=== PATIENT | female | born 1990 | race Caucasian/White ===

== ENCOUNTER 2016-07-18 19:54 | Emergency (ER) | payer OTHER ==
[~2016-07-18] VITALS: Ht 160 cm; Wt 59.5 kg
[~2016-07-18 19:54] MED LIST: IBUPROFEN800 MG PO; NAPROSYN500 MG PO; NORCO 5/3251 TABLET PO; PRENATAL TABLE1 EAC3 PO; ULTRACET1 TABLET PO; WOMEN MULTIVIT1 EACH PO; ZOFRAN ODT4 MG PO; ZOFRAN4 MG PO
[2016-07-18 20:33] LABS: ADD MIUA? YES; BILIRUBIN NEGATIVE; BLOOD NEGATIVE; COLOR YELLOW ((YELLOW)); GLUCOSE (STRIP) NEGATIVE; KETONES NEGATIVE; LEUKOCYTES SMALL; NITRITE NEGATIVE; PROTEIN (STRIP) 30; SPECIFIC GRAVITY 1.024 (1.000-1.030); UROBILINOGEN 0.2 MG/DL (0.2-1.0)
[2016-07-18 20:47] LABS: BACTERIA NONE SEEN /HPF; EPITHELIAL CELLS 2+ /HPF; MUCUS 1+ /LPF; RED BLOOD CELLS 0-5 /HPF (0-5); UCUL ADDED? NO; WHITE BLOOD CELLS 0-5 /HPF (0-5)
[2016-07-18 20:50] LABS: HEMATOCRIT 38.9 % (36.0-46.0); MCHC 33.4 G/DL (30.0-36.0); MCV 95.8 FL (83-99); MEAN PLAT.VOLUME 9.1 uM^3 (9.5-12.4); PLATELET COUNT 361 K/uL (156-360); RBC DIS.WIDTH-CV 12.1 % (11.8-14.6); RBC DIS.WIDTH-SD 43.2 % (39-53); RED BLOOD COUNT 4.06 M/uL (3.80-5.20); WHITE BLOOD COUNT 7.4 K/uL (4.1-10.2)
[2016-07-18 21:00] LABS: CHLORIDE 107 mEq/L (99-109); POTASSIUM 3.9 mEq/L (3.7-5.4); SODIUM 140 mEq/L (136-147)
[2016-07-18 21:02] LABS: GLUCOSE 76 mg/dL (70-99)
[2016-07-18 21:03] LABS: ANION GAP 10 MEQ/L (2-14)
[2016-07-18 21:04] LABS: TOTAL BILIRUBIN 0.3 mg/dL (0.0-1.0)
[2016-07-18 21:06] LABS: ALKALINE PHOSPHATASE 56 IU/L (3-129); GFR ESTIMATE (CALCULATED) > 59 mL/min/
[2016-07-18 21:07] LABS: UREA NITROGEN (BUN) 12 mg/dL (9-23)
[2016-07-18 21:15] LABS: QUANTITATIVE HCG < 4.0 MIU/ML
[2016-07-18] MEDS ORDERED: ZOFRAN ODT4 MG PO (23:08)
[2016-07-18] MEDS ORDERED: NORCO 5/3251 TABLET PO (23:08)
[2016-07-18 23:32] VITALS: BP 139/87
== END 2016-07-18 23:33 | disposition home or self-care (01) ==
LOC: EME 19:54 → EXP 20:44
PROVIDERS: Physician Assistant
DX: N83.202 Unspecified ovarian cyst, left side (principal); R10.9 Unspecified abdominal pain; R10.32 Left lower quadrant pain; Z87.442 Personal history of urinary calculi; Z88.1 Allergy status to other antibiotic agents; Z88.8 Allergy status to other drugs, medicaments and biological substances; Z91.018 Allergy to other foods
CPT/HCPCS: 74176; 76856; 80053; 81003; 84702; 85027; 99281; 99285; J1885; J2270; J2405; J7030

== ENCOUNTER 2016-12-22 17:54 | Emergency (ER) | payer OTHER ==
[~2016-12-22] VITALS: Ht 160 cm; Wt 63.6 kg
[2016-12-22 19:06] LABS: ADD MIUA? YES; BILIRUBIN NEGATIVE; BLOOD SMALL; COLOR YELLOW ((YELLOW)); GLUCOSE (STRIP) NEGATIVE; KETONES NEGATIVE; LEUKOCYTES TRACE; NITRITE NEGATIVE; PROTEIN (STRIP) NEGATIVE; SPECIFIC GRAVITY 1.027 (1.000-1.030); UROBILINOGEN 0.2 MG/DL (0.2-1.0)
[2016-12-22 19:22] LABS: BACTERIA NONE SEEN /HPF; EPITHELIAL CELLS 1+ /HPF; MUCUS TRACE /LPF; RED BLOOD CELLS 0-5 /HPF (0-5); UCUL ADDED? NO; WHITE BLOOD CELLS 0-5 /HPF (0-5)
[2016-12-22 19:23] LABS: HEMATOCRIT 37.5 % (36.0-46.0); MCH 31.8 PG (29.0-34.0); MCHC 34.1 G/DL (30.0-36.0); MCV 93.3 FL (83-99); MEAN PLAT.VOLUME 9.1 uM^3 (9.5-12.4); PLATELET COUNT 376 K/uL (156-360); RBC DIS.WIDTH-CV 11.4 % (11.8-14.6); RBC DIS.WIDTH-SD 38.8 % (39-53); RED BLOOD COUNT 4.02 M/uL (3.80-5.20); WHITE BLOOD COUNT 6.2 K/uL (4.1-10.2)
[2016-12-22 19:31] LABS: CHLORIDE 105 mEq/L (99-109); POTASSIUM 3.9 mEq/L (3.7-5.4); SODIUM 139 mEq/L (136-147)
[2016-12-22 19:33] LABS: GLUCOSE 85 mg/dL (70-99)
[2016-12-22 19:34] LABS: ANION GAP 10 MEQ/L (2-14)
[2016-12-22 19:37] LABS: GFR ESTIMATE (CALCULATED) > 59 mL/min/
[2016-12-22 19:38] LABS: UREA NITROGEN (BUN) 17 mg/dL (9-23)
[2016-12-22 19:45] LABS: QUANTITATIVE HCG < 4.0 MIU/ML
[2016-12-22] MEDS ORDERED: PONSTEL250 MG PO (20:26)
[2016-12-22 20:51] VITALS: BP 151/71
== END 2016-12-22 20:52 | disposition home or self-care (01) ==
LOC: EME 17:54
DX: N93.8 Other specified abnormal uterine and vaginal bleeding (principal); N94.6 Dysmenorrhea, unspecified; F41.9 Anxiety disorder, unspecified; Z87.891 Personal history of nicotine dependence; Z88.0 Allergy status to penicillin
CPT/HCPCS: 80048; 81003; 84702; 85027; 99281; 99284

== ENCOUNTER 2017-01-19 09:37 | Emergency (ER) | payer OTHER ==
[~2017-01-19] VITALS: Ht 160 cm; Wt 64.8 kg
[~2017-01-19 09:37] MED LIST changes: +PONSTEL250 MG PO
[2017-01-19] MEDS ORDERED: ZOFRAN ODT4 MG PO (11:37)
[2017-01-19 11:43] VITALS: BP 116/66
== END 2017-01-19 11:51 | disposition home or self-care (01) ==
LOC: EME 09:37
DX: G43.909 Migraine, unspecified, not intractable, without status migrainosus (principal); F41.9 Anxiety disorder, unspecified; Z88.1 Allergy status to other antibiotic agents; Z91.013 Allergy to seafood; Z87.891 Personal history of nicotine dependence
CPT/HCPCS: 99281; 99284; J1885; J2405; J2765; J7030

== ENCOUNTER 2017-04-02 17:00 | Emergency (ER) | payer OTHER ==
[~2017-04-02] VITALS: Ht 160 cm; Wt 64.4 kg
[2017-04-02 17:40] VITALS: BP 146/102
== END 2017-04-02 18:00 | disposition left against medical advice (07) ==
LOC: EME 17:00
DX: M79.89 Other specified soft tissue disorders (principal); Z53.21 Procedure and treatment not carried out due to patient leaving prior to being seen by health care provider

== ENCOUNTER 2017-04-09 17:13 | Emergency (ER) | payer OTHER ==
[~2017-04-09] VITALS: Ht 160 cm; Wt 67.5 kg
[2017-04-09 17:49] LABS: HEMATOCRIT 36.7 % (36.0-46.0); HEMOGLOBIN 12.9 G/DL (11.9-15.5); MCH 33.5 PG (29.0-34.0); MCHC 35.1 G/DL (30.0-36.0); MCV 95.3 FL (83-99); PLATELET COUNT 382 K/uL (156-360); RBC DIS.WIDTH-CV 11.7 % (11.8-14.6); RBC DIS.WIDTH-SD 40.3 % (39-53); RED BLOOD COUNT 3.85 M/uL (3.80-5.20); WHITE BLOOD COUNT 12.7 K/uL (4.1-10.2)
[2017-04-09 18:07] LABS: CHLORIDE 103 mEq/L (99-109); POTASSIUM 3.8 mEq/L (3.7-5.4); SODIUM 137 mEq/L (136-147)
[2017-04-09 18:09] LABS: GLUCOSE 102 mg/dL (70-99)
[2017-04-09 18:13] LABS: CREATININE 0.7 mg/dL (0.6-1.3); GFR ESTIMATE (CALCULATED) > 59 mL/min/; UREA NITROGEN (BUN) 14 mg/dL (9-23)
[2017-04-09 18:21] LABS: QUANTITATIVE HCG < 4.0 MIU/ML
[2017-04-09 20:07] VITALS: BP 139/78
== END 2017-04-09 20:09 | disposition home or self-care (01) ==
LOC: EME 17:13
PROVIDERS: Physician Assistant
DX: R55 Syncope and collapse (principal); F41.9 Anxiety disorder, unspecified; Z88.1 Allergy status to other antibiotic agents
CPT/HCPCS: 80048; 84702; 85027; 93005; 99281; 99285; J2405; J2765; J7030

== ENCOUNTER → 2017-04-21 | Outpatient (CLI) | payer OTHER | END | disposition home or self-care (01) | LOC: EEG 07:38 | DX: R94.01 Abnormal electroencephalogram [EEG] (principal) | CPT/HCPCS: 95954 ==